=== PATIENT | male | born 1960 | race Caucasian/White ===

== ENCOUNTER 2021-08-15 14:27 | Observation (INO) | payer OTHER ==
[~2021-08-15] VITALS: Ht 188 cm; Wt 104.8 kg
[2021-08-15] MEDS ORDERED: PERCOCET 7.5-31 EACH PO (19:09)
[2021-08-15 23:42] LABS: HEMOGLOBIN 16.5 gm/dl (14.0-17.5); RED BLOOD COUNT 6.01 M/UL (4.20-5.50); WHITE BLOOD COUNT 10.6 K/UL (4.5-11.0)
[2021-08-15 23:59] LABS: BUN/CREATININE RATIO 28 (0-10)
[2021-08-16] MEDS ORDERED: CRESTOR20 MG PO (03:58)
[2021-08-16] MEDS ORDERED: GLUCOPHAGE 500500 MG PO (03:59)
[2021-08-16] MEDS ORDERED: CLARITIN10 MG PO (03:59)
[2021-08-16] MEDS ORDERED: ASPIRIN EC81 MG PO (04:00)
[2021-08-16] MEDS ORDERED: OMEPRAZOLE20 MG PO (04:01)
[2021-08-16] MEDS ORDERED: MULTI-VITAMIN1 EACH PO (04:01)
[2021-08-16] MEDS ORDERED: LISINOPRIL10 MG PO (04:07)
[2021-08-16 05:49] LABS: HEMOGLOBIN 15.8 gm/dl (14.0-17.5); RED BLOOD COUNT 5.79 M/UL (4.20-5.50); WHITE BLOOD COUNT 9.1 K/UL (4.5-11.0)
[2021-08-16 05:58] LABS: BUN/CREATININE RATIO 26 (0-10)
== END 2021-08-16 18:45 | disposition home or self-care (01) ==
LOC: ER1 14:27 → MED SURG 4 20:46 → CDU 20:46 → MED SURG 4 08-16 00:30
PROVIDERS: Internal Medicine; ADMIT Internal Medicine
DX: S22.011A Stable burst fracture of first thoracic vertebra, initial encounter for closed fracture (principal); S22.071A Stable burst fracture of T9-T10 vertebra, initial encounter for closed fracture; J98.11 Atelectasis; E11.9 Type 2 diabetes mellitus without complications; I10 Essential (primary) hypertension; E78.5 Hyperlipidemia, unspecified; Z20.822 Contact with and (suspected) exposure to COVID-19; Z91.040 Latex allergy status; Z91.018 Allergy to other foods; Z79.82 Long term (current) use of aspirin; Z79.84 Long term (current) use of oral hypoglycemic drugs; Z79.899 Other long term (current) drug therapy; W00.0XXA Fall on same level due to ice and snow, initial encounter; Y92.008 Other place in unspecified non-institutional (private) residence as the place of occurrence of the external cause
CPT/HCPCS: 36415; 71045; 71250; 72125; 72128; 72146; 80048; 80053; 82962; 83036; 83735; 84439; 85025; 85610; 85730; 93005; 99285; G0378; U0002